=== PATIENT | male | born 1955 | race Caucasian/White ===

== ENCOUNTER 2018-12-04 09:28 | Day surgery (SDC) | payer OTHER ==
[~2018-12-04] VITALS: Ht 180.3 cm; Wt 67.8 kg
[~2018-12-04 09:28] MED LIST: Advil Migraine200 MG; MOMENI
--- NOTE | 2018-12-04 10:46 | NUR ---
12/04/18 1046 Gomez Gaffney 1ST IV ATTEMPT IN LH UNSUCCESSFUL, [email or web address] 2ND IV ATTEMPT IN LAC SUCCESSFUL, [email or web address]
== END 2018-12-04 12:20 | disposition home or self-care (01) ==
LOC: ORSCSDS 09:28
PROVIDERS: Orthopaedic Surgery
PROC: 0LB70ZZ Excision of Right Hand Tendon, Open Approach (ICD-10-PCS; principal; 2018-12-04 10:45)
DX: M67.441 Ganglion, right hand (principal); I10 Essential (primary) hypertension
CPT/HCPCS: 88304; J0690; J1885; J2001; J2250; J2704; J3010; J7120

== ENCOUNTER 2019-09-28 09:32 | Day surgery (SDC) | payer OTHER ==
[~2019-09-28] VITALS: Ht 180.3 cm; Wt 66.5 kg
[~2019-09-28 09:32] MED LIST changes: +Sudogest30 MG
== END 2019-09-28 13:44 | disposition home or self-care (01) ==
LOC: ORSCSDS 09:32
PROVIDERS: Orthopaedic Surgery
PROC: 0LS14ZZ Reposition Right Shoulder Tendon, Percutaneous Endoscopic Approach (ICD-10-PCS; principal; 2019-09-28 11:00)
PROC: 0LU14KZ Supplement Right Shoulder Tendon with Nonautologous Tissue Substitute, Percutaneous Endoscopic Approach (ICD-10-PCS; principal; 2019-09-28 11:00)
PROC: 0RNJ4ZZ Release Right Shoulder Joint, Percutaneous Endoscopic Approach (ICD-10-PCS; principal; 2019-09-28 11:00)
PROC: 0LQ14ZZ Repair Right Shoulder Tendon, Percutaneous Endoscopic Approach (ICD-10-PCS; principal; 2019-09-28 11:00)
DX: M75.112 Incomplete rotator cuff tear or rupture of left shoulder, not specified as traumatic (principal); M75.21 Bicipital tendinitis, right shoulder; M75.51 Bursitis of right shoulder; M75.42 Impingement syndrome of left shoulder
CPT/HCPCS: C1713; J0171; J0690; J2250; J2704; J2795; J3010; J7120

== ENCOUNTER 2022-11-08 16:37 | Observation (INO) | payer MEDICARE ==
[~2022-11-08] VITALS: Ht 182.9 cm; Wt 69.5 kg
[2022-11-08 17:22] LABS: BASOPHILS ABSOLUTE AUTO 0.02 K/mm3 (0.00-0.23); BASOPHILS PERCENT AUTO 0 % (0-2); EOSINOPHILS ABSOLUTE AUTO 0.01 K/mm3 (0.00-0.68); EOSINOPHILS PERCENT AUTO 0 % (0-6); Hematocrit 40.9 % (37.0-53.0); Hemoglobin 13.9 g/dL (13.5-17.5); IMMATURE GRAN ABSOLUTE AUTO 0.01 K/mm3 (0.00-0.10); IMMATURE GRAN PERCENT AUTO 0 % (0-1); LYMPHOCYTES ABSOLUTE AUTO 1.99 K/mm3 (0.84-5.20); LYMPHOCYTES PERCENT AUTO 29 % (21-46); MONOCYTES ABSOLUTE AUTO 0.53 K/mm3 (0.16-1.47); MONOCYTES PERCENT AUTO 8 % (4-13); Mean Corpuscular HGB 32.2 pg (26.0-34.0); Mean Corpuscular Volume 95 fL (80-100); Mean Platelet Volume 9.5 fL (9.1-12.4); NEUTROPHILS ABSOLUTE AUTO 4.39 K/mm3 (1.96-9.15); NEUTROPHILS PERCENT AUTO 63 % (41-73); Platelet Count 209 K/mm3 (150-400); RDW Coefficient Variation 12.3 % (11.7-14.2); RDW Standard Deviation 43.4 fL (35.1-46.3); Red Blood Cell Count 4.32 M/mm3 (4.30-5.90); White Blood Cell Count 6.95 K/mm3 (4.00-11.30)
[2022-11-08 17:53] LABS: Albumin, Blood 4.2 g/dL (3.4-5.0); Albumin/Globulin Ratio 1.3 (0.8-1.8); Bilirubin, Total 0.6 mg/dL (0.1-1.0); Bun/Creatinine Ratio 21.3 (12.0-20.0); Calcium, Blood 9.1 mg/dL (8.5-10.1); Creatinine, Blood 1.08 mg/dL (0.60-1.20); Globulin, Blood 3.2 g/dL (2.2-4.0); Total Protein, Blood 7.4 g/dL (6.4-8.2)
[2022-11-09 05:08] LABS: CHOL/HDL RATIO 2.8; Cholesterol 164 mg/dL (50-200); HDL Cholesterol 59 mg/dL (>39); LDL/HDL RATIO 1.6; Low Density Lipoprotein Chol 92 mg/dL (0-110); Triglycerides 63 mg/dL (30-160); Very Low Density Lipoprot Chol 12 mg/dL (6-32)
--- NOTE | 2022-11-09 05:21 | NUR ---
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 PT ARRIVED TO ROOM AND XFERED INDEPENDENTLY TO BED. PT PLEASANT AND COOPERATIVE. PT STRENGTH EQUAL BILATERALLY. RESPONDS APPROPRIATELY; SPEECH IS CLEAR/NORMAL. PT ON TELE; SINUS ROHIT IN THE 50'S. PT APPEARS IN GOOD HEALTH AND STATES HE HIKES/EXERCISES REGULARLY. PT ORIENTED TO ROOM/CALL LIGHT. INDEPENDENT IN THE ROOM. ABLE TO MAKE NEEDS KNOWN.
--- NOTE | 2022-11-09 12:50 | NUR ---
ORDER FOR ZIOPATCH PLACEMENT FAXED TO [facility] @2515 ON 11/09/2022. WILL GIVE PT NUMBER TO MAKE APPOINTMENT.
[2022-11-09] MEDS ORDERED: ATOR80 PO (16:23)
[2022-11-09] MEDS ORDERED: ELIQUIS5 M2 PO (16:23)
--- NOTE | 2022-11-09 17:00 | NUR ---
DISCHARGE: PT D/C VIA AUTOMOBILE. PT STATES HE IS OKAY TO DRIVE. 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 PT INSTRUCTIONS GIVEN INCLUDING ZYOPATCH APT, FOLLOW-UP WITH PRIMARY, AND NEW MEDICATIONS. NUMBER FOR [facility] AND DR. MONTERO GIVEN TO PT. PT AWARE TO COME BACK IN WITH NEW BLEEDS, CONFUSION, OR DIFFICULTY SPEAKING. BELONGINGS SENT WITH PT. IV TAKEN OUT W/O COMPLICATIONS. TELE SENT BACK. PT HAPPY WITH CARE PROVIDED.
== END 2022-11-09 17:02 | disposition home or self-care (01) ==
LOC: ER 16:37 → MEDS 16:38
PROVIDERS: Nurse Practitioner Acute Care; Physician Assistant; ADMIT Internal Medicine
DX: I63.312 Cerebral infarction due to thrombosis of left middle cerebral artery (principal); R47.01 Aphasia; E78.5 Hyperlipidemia, unspecified; I77.819 Aortic ectasia, unspecified site; I48.92 Unspecified atrial flutter
CPT/HCPCS: 36415; 70450; 80053; 80061; 83036; 84443; 85025; 93005; 93010; 93306; 93880; 96360; 96372; 99285-25; A9270; G0378; J1650; J7030

== ENCOUNTER 2023-05-22 14:04 | Day surgery (SDC) | payer MEDICARE ==
[~2023-05-22] VITALS: Ht 180.3 cm; Wt 68.0 kg
[~2023-05-22 14:04] MED LIST changes: +ATOR80 PO; +ELIQUIS5 M2 PO; +METO25ER PO; +Tambocor100 MG PO
--- NOTE | 2023-05-22 15:16 | NUR ---
1430 PATIENT BROUGHT TO THE PROCEDURE ROOM ADN PREPPED FOR BRIANA/DCCV. DR. AWLDRON AT THE BEDSIDE AND VERIFIED TODAY'S EKG DONE AT THE BEDSIDE. ANESTHESIA DELAYED FOR ONE HOUR. PATIENT UPDATED AND CALL LIGHT IN PLACE, WARM BLANKETS GIVEN AND UPDATED HIS FAMILY.
[2023-05-22 15:41] VITALS: BP 121/91
[2023-05-22 15:45] VITALS: BP 132/99
[2023-05-22 16:00] VITALS: BP 102/72
--- NOTE | 2023-05-22 16:07 | NUR ---
BRIANA COMPLETED, RECOVERY STARTED. PATIENT IS AWAKE AND TALKING WITH STAFF.
[2023-05-22 16:15] VITALS: BP 95/66
[2023-05-22 16:28] VITALS: BP 99/78
[2023-05-22 16:30] VITALS: BP 99/74
--- NOTE | 2023-05-22 18:07 | NUR ---
1640 PATIENT IS UP, CHASITY THE MONITOR AND PIV REMOVED FROM THE RIGHT AC, CATH TIP INTACT, PRESSURE DRESSING APPLIED. PATIENT IS DRESSING AND ALL BELONGINGS GATHERED. RIDE WILL BE HERE IN 10 MINUTES. REVIEWED ALL DISCAHRGE INSTRUCTIONS AND PATIENT VERBALIZED UNDERSTANDING. CALLED THE OFFICE FOR A FOLLOW UP APPOINTMENT IN ONE WEEK AND THEY WILL CALL THE PATIENT. VERIFIED THE PATIENT'S CELL NUMBER WITH THE OFFICE. PATIENT IN A WHEELCHAIR AND WHEELED TO THE SOUTH ENTRANCE TO MET WITH CHOIR LEADER. DISCHARGED HOME @ 3623.
== END 2023-05-24 23:07 | disposition home or self-care (01) ==
LOC: MHTC 14:04
DX: I77.810 Thoracic aortic ectasia (principal); I48.91 Unspecified atrial fibrillation; Z86.73 Personal history of transient ischemic attack (TIA), and cerebral infarction without residual deficits; E78.5 Hyperlipidemia, unspecified
CPT/HCPCS: 93005; 93010; 93312; 93325; A9270; J2704; J7030